=== PATIENT | male | born 1990 ===

== ENCOUNTER 2017-02-11 10:56 | Emergency (ER) | payer OTHER ==
[2017-02-11 11:11] VITALS: RESP 20; TEMP 98.8; O2SAT 100
--- NOTE | 2017-02-11 11:47 | C.PDOC ---
History Of Present Illness <Maribeth Mcqueen - Last Filed: 02/11/17 11:44> <Becki Barksdale - Last Filed: 02/11/17 12:04> 26 year old male with PMHx of HLD presents with complaint of abdominal and back pain that started today after he almost fell. The patient states that at 1030 he was walking in the snow when he slipped on ice. He says that he did not fall because someone caught and held him up. During this event, the patient states his legs "moved in different directions" and he tensed his abdominal muscles. He heard his "hips pop" and after he arrived at his program he began to feel sore pain in his bilateral abdominal muscles and bilateral lower back muscles. Patient states that his program became concerned and sent him to the ED. All other ROS negative. (Maribeth Mcqueen) History Per: Patient History/Exam Limitations: no limitations Onset/Duration Of Symptoms: Hrs (1 hour) Current Symptoms Are (Timing): Still Present Quality Of Discomfort: Other ("Sore") Severity: Moderate Pain Scale Rating Of: 5 Previous Symptoms: None Associated Symptoms: None Exacerbating Factor(s): Nothing Recent travel outside of the [place]: No <Maribeth Mcqueen - Last Filed: 02/11/17 11:44> <Becki Barksdale - Last Filed: 02/11/17 12:04> Time Seen by Provider: 02/11/17 11:24 Chief Complaint (Nursing): Hip Pain Past Medical History - Medical History PMH: Hypercholesterolemia Surgical History: No Surg Hx Family History: States: Unknown Family Hx - Social History Hx Tobacco Use: No Hx Alcohol Use: No Hx Substance Use: No - Immunization History Hx Tetanus Toxoid Vaccination: Yes Hx Influenza Vaccination: Yes Hx Pneumococcal Vaccination: Yes <Maribeth Mcqueen - Last Filed: 02/11/17 11:44> Vital Signs: Last Vital Signs Temp 98.8 F 02/11/17 11:09 Pulse 90 02/11/17 11:09 Resp 20 02/11/17 11:09 BP 144/95 H 02/11/17 11:09 Pulse Ox 100 02/11/17 11:50 Review Of Systems Except As Marked, All Systems Reviewed And Found Negative. Musculoskeletal: Positive for: Back Pain (bilateral low back pain, abdominal muscle pain ) <Maribeth Mcqueen - Last Filed: 02/11/17 11:44> Physical Exam - Physical Exam Appears: Well, Non-toxic, No Acute Distress Skin: Normal Color, Warm, Dry, No Ecchymosis Head: Atraumatic, Normacephalic Eye(s): bilateral: EOMI Cardiovascular: Rhythm Regular Respiratory: Normal Breath Sounds Gastrointestinal/Abdominal: Bowel Sounds, Tenderness (mild muscle tenderness to palpation ), No Mass, No Distention, No Guarding, No Rebound Back: No Vertebral Tenderness, No Decreased ROM, No Muscle Spasm, Paraspinal Tenderness, No Straight Leg Raising Extremity: Normal ROM, No Tenderness <Maribeth Mcqueen - Last Filed: 02/11/17 11:44> ED Course And Treatment O2 Sat by Pulse Oximetry: 100 <Maribeth Mcqueen - Last Filed: 02/11/17 11:44> Supervising Attending Note <Maribeth Mcqueen - Last Filed: 02/11/17 11:44> - Supervising Attending Note Comment: RESIDENT - Attestation: I have personally seen and examined this patient.: Yes I have fully participated in the care of the patient.: Yes I have reviewed all pertinent clinical information: Yes <ShamirBecki - Last Filed: 02/11/17 12:04> - Notes: Notes:: S/P SLIP AND FALL CO BL HIP PAIN, ABD STRAIN. PS FALL WAS CAUGHT, DENIES DIRECT TRAUMA. EXAM ABOVE (Becki Barksadle) Disposition <Maribeth Mcqueen - Last Filed: 02/11/17 11:44> Counseled Patient/Family Regarding: Diagnosis, Need For Followup, Rx Given - Disposition Disposition Time: 12:03 <ShamirBecki - Last Filed: 02/11/17 12:04> - Disposition Referrals: YOUR,PMD [Other] Disposition: HOME/ ROUTINE Condition: IMPROVED Prescriptions: Naproxen 500 mg PO BID #30 tab Instructions: Muscle Strain (ED) - Clinical Impression Clinical Impression: Abdominal wall strain, Hip sprain
[2017-02-11] MEDS ORDERED: Naproxen 550 mg Tab PO STA (12:02)
[2017-02-11] MEDS ORDERED: Naproxen 550 mg Tab PO ONE (12:20)
[2017-02-11 12:32] VITALS: BP 138/87; PULSE 89
== END 2017-02-11 12:32 | disposition home or self-care (01) ==
LOC: C.ER 10:56
DX: S39.011A Strain of muscle, fascia and tendon of abdomen, initial encounter (principal); S73.102A Unspecified sprain of left hip, initial encounter; S73.101A Unspecified sprain of right hip, initial encounter; W18.40XA Slipping, tripping and stumbling without falling, unspecified, initial encounter